=== PATIENT | female | born 1945 | race Caucasian/White ===

== ENCOUNTER 2017-02-23 17:51 | Emergency (ER) | payer MEDICAID ==
[2017-02-23 17:55] VITALS: BP 152/74; PULSE 74; RESP 15; TEMP 98.2; O2SAT 98
--- NOTE | 2017-02-23 18:34 | PD ---
HPI Chief Complaint: Headache Time Seen by Provider: 18:15 Travel History International Travel<30 days: No Contact w/Intl Traveler<30days: No Traveled to known affect area: No History of Present Illness HPI C/O FERNANDEZ THAT HAS BEEN GOING ON FOR 2 DAYS, WORSE WITH MOVEMENT OF NECK, ALSO RECENTLY HAS HAD OCCASIONAL LIGHT NOSEBLEEDS. STATES NO PHOTOPHOBIA/N/V/D/CP/ ABD PAIN PCP IS DR CASTILLO PMHX: HEADACHE AND ASTHMA PSHX: NONE PFSH Social History Tobacco Use: No Allergies-Medications (Allergen,Severity, Reaction): Coded Allergies: No Known Allergies (Unverified , 02/23/17) Review of Systems Except as stated in HPI: all other systems reviewed are Neg HENT: Positive: Headaches, Nosebleed Physical Exam Narrative GENERAL: SKIN: Warm and dry. HEAD: Atraumatic. Normocephalic. EYES: Pupils equal and round. No scleral icterus. No injection or drainage. ENT: RT ANTERIOR NARES HAS SMALL ABRASED MUCOSA NOT ACTIVELY BLEEDING. Mucous membranes pink and moist. NECK: Trachea midline. No JVD. CARDIOVASCULAR: Regular rate and rhythm. RESPIRATORY: No accessory muscle use. Clear to auscultation. Breath sounds equal bilaterally. GASTROINTESTINAL: Abdomen soft, non-tender, nondistended. Hepatic and splenic margins not palpable. MUSCULOSKELETAL: Extremities without clubbing, cyanosis, or edema. No obvious deformities. NEUROLOGICAL: Awake and alert. No obvious cranial nerve deficits. Motor grossly within normal limits. Five out of 5 muscle strength in the arms and legs. Normal speech. PSYCHIATRIC: Appropriate mood and affect; insight and judgment normal. Data Data Last Documented VS Vital Signs Date Time Temp Pulse Resp B/P Pulse Ox O2 Delivery O2 Flow Rate FiO2 02/23/17 17:55 98.2 74 15 152/74 98 Orders Complete Blood Count With Diff (02/23/17 18:37) Comprehensive Metabolic Panel (02/23/17 18:37) Spine, Cervical - Ltd (Ap&Lat) (02/23/17 18:37) Ct Brain W/O Iv Contrast(Rout) (02/23/17 18:37) Acetamin-Hydrocod 325-5 Mg (Deane 5-325 (02/23/17 19:15) Labs Laboratory Tests Test 02/23/17 18:35 White Blood Count 6.7 TH/MM3 Red Blood Count 4.30 MIL/MM3 Hemoglobin 13.0 GM/DL Hematocrit 37.6 % Mean Corpuscular Volume 87.4 FL Mean Corpuscular Hemoglobin 30.2 PG Mean Corpuscular Hemoglobin 34.5 % Concent Red Cell Distribution Width 13.9 % Platelet Count 253 TH/MM3 Mean Platelet Volume 8.3 FL Neutrophils (%) (Auto) 55.9 % Lymphocytes (%) (Auto) 25.2 % Monocytes (%) (Auto) 11.7 % Eosinophils (%) (Auto) 6.4 % Basophils (%) (Auto) 0.8 % Neutrophils # (Auto) 3.8 TH/MM3 Lymphocytes # (Auto) 1.7 TH/MM3 Monocytes # (Auto) 0.8 TH/MM3 Eosinophils # (Auto) 0.4 TH/MM3 Basophils # (Auto) 0.1 TH/MM3 CBC Comment DIFF FINAL Differential Comment Sodium Level 139 MEQ/L Potassium Level 4.3 MEQ/L Chloride Level 103 MEQ/L Carbon Dioxide Level 29.4 MEQ/L Anion Gap 7 MEQ/L Blood Urea Nitrogen 10 MG/DL Creatinine 0.75 MG/DL Estimat Glomerular Filtration 77 ML/MIN Rate Random Glucose 98 MG/DL Calcium Level 9.6 MG/DL Total Bilirubin 0.3 MG/DL Aspartate Amino Transf 18 U/L (AST/SGOT) Alanine Aminotransferase 16 U/L (ALT/SGPT) Alkaline Phosphatase 76 U/L Total Protein 7.3 GM/DL Albumin 4.3 GM/DL [facility] Medical Decision Making Medical Screen Exam Complete: Yes Emergency Medical Condition: Yes Medical Record Reviewed: Yes Differential Diagnosis ICH V TENSION FERNANDEZ V SINUSITIS V THROMBOCYTOPENIA V LIVER DZ Narrative Course HEAD CT NEG FOR ICH/SINUS, BLOODWORK SHOWED NL PLATELET, H/H, LFT'S AND ELECTROLYTES. Diagnosis Primary Impression: Rhinitis, allergic Qualified Code: J30.9 - Allergic rhinitis, unspecified chronicity, unspecified seasonality, unspecified trigger Additional Impression: TENSION HEADACHE Patient Instructions: General Instructions, Tension Headache (ED) Scripts Cyclobenzaprine (Flexeril)10 Mg Tab10 Mg PO TID #21 TAB Prov:Clarence Bedoya MD 02/23/17 Auwvlufdsz-Whqcffwdmqjxm-Cernjcnl (Fioricet)50-300-40 Mg Cap1 Cap PO Q4H PRN ( HEADACHE) #20 CAP Prov:Clarence Bedoya MD 02/23/17 Mometasone Nasal [place] (Nasonex Nasal [place])50 Mcg/Act Naspr2 [place] EACH NARE DAILY #1 BOTTLE Ref 0 Prov:Clarence Bedoya MD 02/23/17 Disposition: 01 DISCHARGE HOME Condition: Stable Clarence Bedoya MD Feb 23, 2017 18:34
--- NOTE | 2017-02-23 19:07 | RADRPT ---
EXAM DATE/TIME: 02/23/2017 18:57 [facility] COMPARISON: No previous studies available for comparison. INDICATIONS : Frontal cephalgia. RADIATION DOSE: 56.35 CTDIvol (mGy) MEDICAL HISTORY : Asthma. SURGICAL HISTORY : None. ENCOUNTER: Initial ACUITY: 1 day PAIN SCALE: 4/10 LOCATION: cranial TECHNIQUE: Multiple contiguous axial images were obtained of the head. Using automated exposure control and adj ustment of the mA and/or kV according to patient size, radiation dose was kept as low as reasonably a chievable to obtain optimal diagnostic quality images. DICOM format image data is available electro nically for review and comparison. FINDINGS: CEREBRUM: The ventricles are normal for age. No evidence of midline shift, mass lesion, hemorrhage or acute in farction. No extra-axial fluid collections are seen. POSTERIOR FOSSA: The cerebellum and brainstem are intact. The 4th ventricle is midline. The cerebellopontine angle i s unremarkable. EXTRACRANIAL: The visualized portion of the orbits is intact. SKULL: The calvaria is intact. No evidence of skull fracture. CONCLUSION: Normal examination for a patient of this age. Familia Gomez MD on February 23, 2017 at 19:04 Board Certified Radiologist. This report was verified electronically.
[2017-02-23] MEDS ORDERED: ACETAMINOPHEN/HYDROcodone 325 MG/5 MG TAB PO ONE (19:15)
[2017-02-23 19:26] LABS: AUTOMATED NEUTROPHIL # 3.8 TH/MM3 (1.8-7.7); BASOPHIL # 0.1 TH/MM3 (0-0.2); BASOPHIL % 0.8 % (0.0-2.0); EOSINOPHIL # 0.4 TH/MM3 (0-0.4); EOSINOPHIL % 6.4 % (0.0-4.0); HEMATOCRIT 37.6 % (35.0-46.0); HEMO FLAGS DIFF FINAL; LYMPH % 25.2 % (9.0-44.0); LYMPHOCYTE # 1.7 TH/MM3 (1.0-4.8); MEAN CELL VOLUME 87.4 FL (80.0-100.0); MEAN CORPUSCULAR HEMOGLOBIN 30.2 PG (27.0-34.0); MEAN CORPUSCULAR HGB CONC 34.5 % (32.0-36.0); MONO % 11.7 % (0.0-8.0); NEUT % 55.9 % (16.0-70.0); PLATELET COUNT 253 TH/MM3 (150-450); RED CELL DISTRIBUTION WIDTH 13.9 % (11.6-17.2); WHITE BLOOD COUNT 6.7 TH/MM3 (4.0-11.0)
--- NOTE | 2017-02-23 19:30 | RADRPT ---
EXAM DATE/TIME: 02/23/2017 19:08 [facility] COMPARISON: No previous studies available for comparison. INDICATIONS : Posterior C-Spine pain for 1 month. No known injury. MEDICAL HISTORY : None. SURGICAL HISTORY : None. ENCOUNTER: Initial ACUITY: 1 month PAIN SCORE: 4/10 LOCATION: C-Spine FINDINGS: There is moderate degenerative disc disease in the lower cervical spine. No acute fracture or spondyl olisthesis. No prevertebral soft tissue swelling. CONCLUSION: 1. Moderate degenerative disc disease. No acute findings. Familia Gomez MD on February 23, 2017 at 19:27 Board Certified Radiologist. This report was verified electronically.
[2017-02-23 19:41] LABS: ANION GAP 7 MEQ/L (5-15); AST (GOT) 18 U/L (15-37); BICARBONATE 29.4 MEQ/L (21.0-32.0); BLOOD UREA NITROGEN 10 MG/DL (7-18); CHLORIDE 103 MEQ/L (98-107); GLOMERULAR FILTRATION RATE 77 ML/MIN (>89); POTASSIUM 4.3 MEQ/L (3.5-5.1); SODIUM (NA) 139 MEQ/L (136-145)
[2017-02-23 19:42] LABS: ALT (GPT) 16 U/L (10-53)
[2017-02-23 19:44] LABS: ALKALINE PHOSPHATASE 76 U/L (45-117); TOTAL BILIRUBIN ADULT 0.3 MG/DL (0.2-1.0)
[2017-02-23] MEDS ORDERED: MOME17I EACH NARE (19:55)
[2017-02-23] MEDS ORDERED: BUTA1CAP PO (19:55)
[2017-02-23] MEDS ORDERED: CYCL1TAB29 PO (19:55)
== END 2017-02-23 20:12 | disposition home or self-care (01) ==
LOC: NEPD 17:51
DX: J30.9 Allergic rhinitis, unspecified (principal); G44.209 Tension-type headache, unspecified, not intractable
CPT/HCPCS: 70450; 72040; 80053; 85025; 99285

== ENCOUNTER 2017-06-16 08:10 | Emergency (ER) | payer MEDICAID, OTHER ==
[~2017-06-16] VITALS: Ht 162.6 cm; Wt 63.0 kg
[~2017-06-16 08:10] MED LIST: BUTA1CAP PO; CYCL10TA PO; MOME17I EACH NARE
[2017-06-16 08:12] VITALS: BP 147/83; PULSE 87; RESP 14; TEMP 98.4; O2SAT 99
--- NOTE | 2017-06-16 09:56 | PD ---
HPI . left wrist/arm pain Chief Complaint: Pain: Acute or Chronic Time Seen by Provider: 08:42 Travel History International Travel<30 days: No Contact w/Intl Traveler<30days: No Traveled to known affect area: No History of Present Illness HPI 72 year old Kos[place] speaking female presents to the emergency department for evaluation of left wrist/forearm pain. Interruptive services used to communicate with patient. Patient denies any injury, fall or trauma. Pain is exacerbated with movement. Symptoms are mild in nature. Patient states the pain started 2 days ago and she woke up with it. Patient's only major medical history is asthma. Patient denies any chest pain, shortness or breath, abdominal pain, nausea, vomiting, diarrhea. PFSH Past Medical History Respiratory: Yes (asthma) Social History Alcohol Use: No Tobacco Use: No Substance Use: No Allergies-Medications (Allergen,Severity, Reaction): Coded Allergies: No Known Allergies (Unverified , 02/23/17) Reported Meds & Prescriptions Reported Meds & Active Scripts Active Flexeril (Cyclobenzaprine HCl) 10 Mg Tab 10 Mg PO TID Fioricet (Iqbhwsmpua-Oaxijcjxvflvx-Ybwtbwvb) 50-300-40 Mg Cap 1 Cap PO Q4H PRN Nasonex Nasal [place] (Mometasone Furoate) 50 Mcg/Act Naspr 2 [place] EACH NARE DAILY Review of Systems Except as stated in HPI: all other systems reviewed are Neg Physical Exam Narrative GENERAL: Well-nourished, well-developed 72 year of female patient in no acute distress. Nontoxic appearing. SKIN: Focused skin assessment warm/dry. HEAD: Normocephalic. Atraumatic. EYES: No scleral icterus. No injection or drainage. NECK: Supple, trachea midline. No JVD or lymphadenopathy. CARDIOVASCULAR: Regular rate and rhythm without murmurs, gallops, or rubs. Radial pulses +2 bilaterally. RESPIRATORY: Breath sounds equal bilaterally. No accessory muscle use. GASTROINTESTINAL: Abdomen soft, non-tender, nondistended. MUSCULOSKELETAL: Small area of ecchymosis noted to the dorsal aspect of the left forearm. Full range of motion noted in left hand, wrist and elbow. No obvious deformity, ecchymosis, erythema, or cyanosis. Data Data Last Documented VS Vital Signs Date Time Temp Pulse Resp B/P (MAP) Pulse Ox O2 Delivery O2 Flow Rate FiO2 06/16/17 08:12 98.4 87 14 147/83 (104) 99 Orders Orders Forearm (2vws) (06/16/17 09:11) Ice/Cold Pack (06/16/17 09:11) MDM Medical Decision Making Medical Screen Exam Complete: Yes Emergency Medical Condition: Yes Differential Diagnosis Differential diagnosis include but not limited to fracture, sprain, contusion Narrative Course 72 year old female patient presents to the emergency department for evaluation of left wrist/arm pain. Kosovan speaking. Interruptive services used to communicate. X-ray of the left forearm ordered and pending. Ice applied to left forearm. X-ray is negative. Patient discharged home with rice therapy instructions and to follow-up with primary care or return the emergency department for worsening condition. Diagnosis Primary Impression: Left arm pain Referrals: Primary Care Physician Patient Instructions: General Instructions, Pain Management Older Adults (DC) Additional Instructions: Please return to emergency department if your symptoms return or worsen. Follow up with your primary care provider. Rice therapy to left arm, rest, ice, Skyler wrap with activity and elevate with resting. Disposition: 01 DISCHARGE HOME Condition: Stable Diana Das NURIS Jun 16, 2017 09:56
--- NOTE | 2017-06-16 10:17 | RADRPT ---
EXAM DATE/TIME: 06/16/2017 09:43 [facility] COMPARISON: No previous studies available for comparison. INDICATIONS : Left distal forearm pain, denies injury MEDICAL HISTORY : Asthma SURGICAL HISTORY : None. ENCOUNTER: Initial ACUITY: 2 days PAIN SCORE: 8/10 LOCATION: Left Forearm FINDINGS: Two view examination of the right forearm demonstrates no evidence of fracture or dislocation. Bony mineralization is normal. The soft tissue structures are intact. CONCLUSION: Negative exam. Moy Hutchins MD on June 16, 2017 at 10:15 Board Certified Radiologist. This report was verified electronically.
== END 2017-06-16 11:33 | disposition home or self-care (01) ==
LOC: NEPD 08:10
DX: M79.602 Pain in left arm (principal)
CPT/HCPCS: 73090; 99284